=== PATIENT | male | born 1980 | race Caucasian/White ===

== ENCOUNTER 2024-06-10 18:15 | Emergency (ER) | payer SELFPAY ==
[~2024-06-10] VITALS: Ht 182.9 cm; Wt 78.0 kg
[2024-06-10 18:18] VITALS: BP 135/76; PULSE 80; RESP 16; TEMP 98.4; O2SAT 100
== END 2024-06-10 18:26 | disposition left against medical advice (07) ==
LOC: ER 18:15
DX: R07.89 Other chest pain (principal); Z53.21 Procedure and treatment not carried out due to patient leaving prior to being seen by health care provider